=== PATIENT | female | born 1990 | race Caucasian/White ===

== ENCOUNTER → 2021-12-21 | Emergency (ER) | payer OTHER ==
[2021-12-21 10:03] LABS: BASOPHIL 0.7 % (0-2); EOSINOPHIL 5.4 % (0-5); HCT 41.8 % (37.0-47.0); HGB 13.8 g/dl (12.5-16.0); LYMPHOCYTE 30.2 % (15-48); MCH 29.7 pg (25.0-31.0); MCV 90.1 fL (78.0-100.0); MONOCYTE 8.5 % (0-12); MPV 12.1 fL (6.0-9.5); NEUTROPHIL 54.7 % (41-80); NRBC 0; PLT 229 K/uL (150-400); RBC 4.64 M/uL (4.20-5.40); RDW 12.6 % (11.5-14.0); WBC 8.2 K/uL (4.0-10.5)
[2021-12-21 10:22] LABS: ALBUMIN 3.8 g/dL (3.4-5.0); BILIRUBIN - TOTAL 0.4 mg/dL (0.2-1.0); BUN/CREAT RATIO (CALC) 17.6 RATIO; CREATININE 0.85 mg/dL (0.51-0.95); MAGNESIUM 1.9 mg/dL (1.8-2.4); POTASSIUM 3.7 mmol/L (3.5-5.1); TOTAL PROTEIN 6.8 g/dL (6.4-8.2)
== END | disposition home or self-care (01) ==
LOC: FER 09:17
PROVIDERS: Emergency Medicine
DX: I49.3 Ventricular premature depolarization (principal); Z88.0 Allergy status to penicillin
CPT/HCPCS: 36415; 80053; 83735; 84443; 84484; 85025; 93005